=== PATIENT | female | born 1995 | race Caucasian/White ===

== ENCOUNTER 2018-09-26 08:40 | Emergency (ER) | payer MEDICAID ==
[~2018-09-26] VITALS: Ht 165.1 cm; Wt 93.2 kg
[~2018-09-26 08:40] MED LIST: IBUPROFEN600 MG PO; PERCOCET 5-3251 TAB PO
[2018-09-26 08:46] VITALS: Ht 165.1 cm; Wt 93.2 kg
[2018-09-26 09:15] LABS: BASOPHILS 0.1 % (0-2); EOSINOPHILS 0.4 % (0-7); HEMATOCRIT 42.7 % (36.0-48.0); IMMATURE GRANULOCYTES 0.2 % (0-5); LYMPHOCYTES 4.6 % (15-50); MCH 30.8 pg (26.0-34.0); MCHC 35.1 g/dL (31.0-37.0); MCV 87.7 fL (80.0-100.0); MEAN PLATELET VOLUME 13.4 fL (7.4-10.4); MONOCYTES 4.7 % (2-11); RBC 4.87 10x6/uL (4.00-5.40); RDW 12.4 % (11.5-14.5); WBC 9.8 10x3/uL (4.8-10.8)
[2018-09-26 09:19] LABS: PLATELET COUNT 136 10x3/uL (130-400)
[2018-09-26 09:22] LABS: APPEARANCE HAZY (CLEAR); BILIRUBIN NEGATIVE (NEGATIVE); COLOR YELLOW (YELLOW); GLUCOSE NEGATIVE (NEGATIVE); KETONE NEGATIVE (NEGATIVE); NITRITE NEGATIVE (NEGATIVE); PROTEIN NEGATIVE (NEGATIVE); SPECIFIC GRAVITY 1.005 (1.005-1.020); UROBILINOGEN NORMAL (NORMAL)
[2018-09-26 09:25] LABS: HCG SERUM NEGATIVE (NEGATIVE)
[2018-09-26 09:26] LABS: BACTERIA MANY /hpf (NONE SEEN); EPITHELIAL CELLS 0-5 /hpf (0-5); MUCUS <1+ /lpf (NONE SEEN); RED CELLS - URINE RARE /hpf (0-5); WHITE CELLS - URINE 0-5 /hpf (0-5)
[2018-09-26 09:29] LABS: ALBUMIN 3.9 g/dL (3.4-5.0); ALKALINE PHOSPHATASE 67 U/L (46-116); ALT (SGPT) 32 U/L (10-68); AMYLASE - SERUM 49 U/L (25-115); CALC OSMOLALITY 274 mosm/kg (275-300); CALCIUM 8.7 mg/dL (8.5-10.1); CARBON DIOXIDE 23.2 mmol/L (21.0-32.0); CHLORIDE - SERUM 104 mmol/L (98-107); CREATININE - SERUM 0.7 mg/dL (0.6-1.3); GLUCOSE 106 mg/dL (74-106); LIPASE 108 U/L (73-393); PROTEIN - SERUM 7.2 g/dL (6.4-8.2); SODIUM 138 mmol/L (136-145); UREA NITROGEN 11 mg/dL (7-18); eGFR NON AFRICAN AMERICAN > 90 mL/min (90-120)
[2018-09-26] MEDS ORDERED: MACROBID100 MG PO (12:12)
[2018-09-26] MEDS ORDERED: ZOFRAN ODT4 MG/UDTAB PO (12:12)
[2018-09-26 12:45] VITALS: BP 96/43
== END 2018-09-26 12:32 | disposition home or self-care (01) ==
LOC: D.ER 08:40
PROVIDERS: Family Medicine
DX: N39.0 Urinary tract infection, site not specified (principal)

== ENCOUNTER 2018-11-15 09:38 | Emergency (ER) | payer MEDICAID ==
[~2018-11-15] VITALS: Ht 165.1 cm; Wt 93.2 kg
[~2018-11-15 09:38] MED LIST changes: +MACROBID100 MG PO; +ZOFRAN ODT4 MG/UDTAB PO
[2018-11-15 09:43] VITALS: Ht 165.1 cm; Wt 93.2 kg
[2018-11-15] MEDS ORDERED: CLEOCIN HCL300 MG PO (11:52)
[2018-11-15] MEDS ORDERED: NAPROSYN500 MG PO (11:52)
[2018-11-15 12:58] VITALS: BP 110/66
== END 2018-11-15 12:32 | disposition home or self-care (01) ==
LOC: D.ER 09:38
DX: K02.9 Dental caries, unspecified (principal); R51 Headache